=== PATIENT | female | born 1985 | race Caucasian/White ===

== ENCOUNTER → 2017-08-04 | Outpatient (CLI) | payer OTHER ==
[2017-08-04 16:51] LABS: BASO # 0.1 x10^3/uL (0.0-0.2); BASO % 1 % (0-3); EOS # 0.2 x10^3/uL (0.0-0.7); EOS % 2 % (0-3); HEMATOCRIT 40.2 % (36.0-47.0); HEMOGLOBIN 13.7 g/dL (12.0-15.5); LYMPH # 2.7 x10^3/uL (1.0-4.8); LYMPH % 24 % (24-48); MEAN CORPUSCULAR HEMOGLOBIN 33 pg (25-35); MEAN CORPUSCULAR HGB CONC 34 g/dL (31-37); MEAN CORPUSCULAR VOLUME 97 fL (79-100); MONO # 0.7 x10^3/uL (0.0-1.1); MONO % 7 % (0-9); NEUT # 7.4 x10^3uL (1.8-7.7); NEUT % 67 % (31-73); PLATELET COUNT 256 x10^3/uL (140-400); RED BLOOD COUNT 4.15 x10^6/uL (3.50-5.40); RED CELL DISTRIBUTION WIDTH 14.9 % (11.5-14.5); WHITE BLOOD COUNT 11.1 x10^3/uL (4.0-11.0)
[2017-08-04 16:55] LABS: ALBUMIN 3.5 g/dL (3.4-5.0); CALCIUM 8.7 mg/dL (8.5-10.1); CREATININE 0.8 mg/dL (0.6-1.0); GFR 82.1; POTASSIUM 3.7 mmol/L (3.5-5.1); TOTAL BILIRUBIN 0.2 mg/dL (0.2-1.0); TOTAL PROTEIN 6.9 g/dL (6.4-8.2)
[2017-08-05 11:02] LABS: FREE T4 0.92 ng/dL (0.76-1.46); THYROID STIM HORMONE (TSH) 1.004 uIU/mL (0.358-3.740)
== END | disposition home or self-care (01) ==
LOC: PMG 15:09
PROVIDERS: ATTEND Nurse Practitioner Family
DX: I10 Essential (primary) hypertension (principal); N92.6 Irregular menstruation, unspecified; R63.1 Polydipsia; R53.83 Other fatigue
CPT/HCPCS: 36415; 80053; 84439; 84443; 85025

== ENCOUNTER → 2019-03-13 | Outpatient (CLI) | payer OTHER ==
--- NOTE | 2019-03-13 17:31 | RAD ---
LUMBAR SPINE MIN 4V History: Lumbar back pain Comparison: None FINDINGS: 5 views of the lumbar spine are submitted. There is very mild superior lumbar dextroscoliosis. Lumbar vertebral body stature and AP alignment are maintained. Intervertebral disc spaces are adequate. No acute osseous abnormality is identified by radiographs. Impression: 1. There is mild lumbar dextroscoliosis. No acute osseous abnormality is identified by radiographs. Electronically signed by: Romero Mckinley MD (03/13/2019 5:28 PM) [id number]
== END | disposition home or self-care (01) ==
LOC: PMG 15:53
PROVIDERS: ATTEND Physician Assistant
DX: M41.86 Other forms of scoliosis, lumbar region (principal)
CPT/HCPCS: 72110

== ENCOUNTER → 2019-11-13 | Outpatient (CLI) | payer OTHER ==
[2019-11-13 15:30] LABS: BASO # 0.1 x10^3/uL (0.0-0.2); BASO % 1 % (0-3); EOS # 0.2 x10^3/uL (0.0-0.7); EOS % 2 % (0-3); HEMATOCRIT 40.2 % (36.0-47.0); HEMOGLOBIN 13.6 g/dL (12.0-15.5); LYMPH # 2.3 x10^3/uL (1.0-4.8); LYMPH % 28 % (24-48); MEAN CORPUSCULAR HEMOGLOBIN 34 pg (25-35); MEAN CORPUSCULAR HGB CONC 34 g/dL (31-37); MEAN CORPUSCULAR VOLUME 101 fL (79-100); MONO # 0.5 x10^3/uL (0.0-1.1); MONO % 6 % (0-9); NEUT # 5.4 x10^3uL (1.8-7.7); NEUT % 64 % (31-73); PLATELET COUNT 336 x10^3/uL (140-400); RED BLOOD COUNT 3.99 x10^6/uL (3.50-5.40); RED CELL DISTRIBUTION WIDTH 12.7 % (11.5-14.5); WHITE BLOOD COUNT 8.4 x10^3/uL (4.0-11.0)
[2019-11-13 15:56] LABS: ALBUMIN 3.5 g/dL (3.4-5.0); ALBUMIN/GLOBULIN RATIO 0.8 (1.0-1.7); CALCIUM 9.3 mg/dL (8.5-10.1); CREATININE 1.1 mg/dL (0.6-1.0); GFR 56.2; POTASSIUM 3.3 mmol/L (3.5-5.1); TOTAL BILIRUBIN 0.4 mg/dL (0.2-1.0); TOTAL PROTEIN 7.7 g/dL (6.4-8.2)
[2019-11-14 14:05] LABS: FREE T4 1.11 ng/dL (0.76-1.46); THYROID STIM HORMONE (TSH) 1.907 uIU/mL (0.358-3.740)
== END | disposition home or self-care (01) ==
LOC: LAB 14:19
PROVIDERS: ATTEND Physician Assistant Medical
DX: Z00.00 Encounter for general adult medical examination without abnormal findings (principal); I10 Essential (primary) hypertension
CPT/HCPCS: 36415; 80053; 84439; 84443; 85025; 88175

== ENCOUNTER 2020-11-02 11:15 | Emergency (ER) | payer OTHER ==
[~2020-11-02] VITALS: Ht 170.2 cm; Wt 80.3 kg
[2020-11-02 11:15] VITALS: BP 126/60
[2020-11-02] MEDS ORDERED: PENI500T PO (12:04)
--- NOTE | 2020-11-02 12:04 | PHYS DOC ---
General Adult EDM: Chief Complaint: SORE THROAT HPI: HPI: 35-year-old female presents with severe sore throat. Is been getting worse the last couple of days. She has felt feverish but not measured a fever. She has not had strep since she was a kid. She states that it feels like she is swallowing glass. She is also very tired. She has no other complaints this time. Review of Systems: Review of Systems: Constitutional: Denies fever or chills Eyes: Denies change in visual acuity HENT: sore throat Respiratory: Denies cough or shortness of breath Cardiovascular: Denies chest pain or edema GI: Denies abdominal pain, nausea, vomiting, bloody stools or diarrhea : Denies dysuria Musculoskeletal: Denies back pain or joint pain Integument: Denies rash Neurologic: Denies headache, focal weakness or sensory changes Endocrine: Denies polyuria or polydipsia Lymphatic: Denies swollen glands Psychiatric: Denies depression or anxiety Physical Exam: PE: Constitutional: Well developed, well nourished, no acute distress, non-toxic appearance. [] HENT: Normocephalic, atraumatic, bilateral external ears normal, oropharynx erythematous, swollen with bilateral tonsillar exudates, nose normal. [] Eyes: PERRLA, EOMI, conjunctiva normal, no discharge. [] Neck: Normal range of motion, no tenderness, supple, no stridor. [] Cardiovascular:Heart rate regular rhythm, no murmur [] Lungs & Thorax: Bilateral breath sounds clear to auscultation [] Abdomen: Bowel sounds normal, soft, no tenderness, no masses, no pulsatile masses. [] Skin: Warm, dry, no erythema, no rash. [] Back: No tenderness, no CVA tenderness. [] Extremities: No tenderness, no cyanosis, no clubbing, ROM intact, no edema. [] Neurologic: Alert and oriented X 3, normal motor function, normal sensory function, no focal deficits noted. [] Psychologic: Affect normal, judgement normal, mood normal. [] EKG: EKG: [] Radiology/Procedures: Radiology/Procedures: [] Heart Score: C/O Chest Pain: N/A Risk Factors: Risk Factors: DM, Current or recent (<one month) smoker, HTN, HLP, family history of CAD, obesity. Risk Scores: Score 0 - 3: 2.5% MACE over next 6 weeks - Discharge Home Score 4 - 6: 20.3% MACE over next 6 weeks - Admit for Clinical Observation Score 7 - 10: 72.7% MACE over next 6 weeks - Early Invasive Strategies Course & Med Decision Making: Course & Med Decision Making Pertinent Labs and Imaging studies reviewed. (See chart for details) The patient's rapid strep is positive. She also clinically looks like strep pharyngitis. She has elected for pill treatment versus an injection. I will treat her with penicillin for 10 days. She is stable for discharge at this time. [] Dragon Disclaimer: Dragon Disclaimer: This electronic medical record was generated, in whole or in part, using a voice recognition dictation system. Departure Departure: Impression: Primary Impression: Strep pharyngitis Disposition: HOME / SELF CARE / HOMELESS Condition: STABLE Referrals: GENESIS GRESHAM (PCP) Patient Instructions: Strep Throat, [id number] Scripts Penicillin V Potassium (PENICILLIN V POTASSIUM) 500 Mg Tablet 1 TAB PO BID for strep throat for 10 Days, #20 TAB Prov: EDMUND PERKINS DO 11/02/20 EDMUND PERKINS DO Nov 02, 2020 12:04
== END 2020-11-02 12:10 | disposition home or self-care (01) ==
LOC: ER 11:15
DX: J02.0 Streptococcal pharyngitis (principal); B95.0 Streptococcus, group A, as the cause of diseases classified elsewhere
CPT/HCPCS: 87880; 99283

== ENCOUNTER 2021-02-07 17:57 | Emergency (ER) | payer OTHER ==
[~2021-02-07] VITALS: Ht 170.2 cm; Wt 81.8 kg
[~2021-02-07 17:57] MED LIST: PENI500T PO
--- NOTE | 2021-02-07 18:45 | PHYS DOC ---
Past History Past Surgical History: No Surgical History Alcohol Use: Occasionally Adult General Chief Complaint Chief Complaint: SHORTNESS OF BREATH HPI HPI Patient is a 35-year-old female who presents with a chief complaint of cough, pleuritic chest pain with radiation to the back and sore throat. States been going on about 2 days. States she think she has had fevers at home she has been warm and having chills and sweats. States she has had her Covid vaccine several months ago. Denies any recent traumas, travels, other illnesses, abdominal pain, nausea, vomiting, diarrhea, dysuria, hematuria or blood in the stool. Review of Systems Review of Systems Review of systems otherwise unremarkable except noted in HPI Physical Exam Physical Exam Constitutional: Well developed, well nourished, no acute distress, non-toxic appearance. [] HENT: Normocephalic, atraumatic, bilateral external ears normal, oropharynx moist, no oral exudates, nose normal. [] Eyes: conjunctiva normal, no discharge. [] Neck: Normal range of motion, no tenderness, supple, no stridor. [] Cardiovascular:Heart rate regular rhythm, no murmur [] Lungs & Thorax: Bilateral breath sounds clear to auscultation [] Abdomen: soft, no tenderness, no masses, no pulsatile masses. [] Skin: Warm, dry, no erythema, no rash. [] Back: No tenderness, no CVA tenderness. [] Extremities: No tenderness, no cyanosis, no clubbing, ROM intact, no edema. [] Neurologic: Alert and oriented X 3, normal motor function, normal sensory function, no focal deficits noted. [] Psychologic: Affect normal, judgement normal, mood normal. [] EKG EKG [] Radiology/Procedures Radiology/Procedures []XAM: CT OF THE CHEST WITHOUT CONTRAST. HISTORY: Opacities on chest radiography. TECHNIQUE: Computed tomography of the chest was performed without intravenous contrast. One or more of the following individualized dose reduction techniques were utilized for this examination: 1. Automated exposure control. 2. Adjustment of the mA and/or kV according to patient size. 3. Use of iterative reconstruction technique. COMPARISON: Today's chest radiograph. FINDINGS: Images of the upper abdomen reveal no acute abnormality. Bone windows reveal no suspicious lesions. There are no pathologically enlarged mediastinal or axillary lymph nodes. There is no pleural or pericardial effusion. The heart is not enlarged. Airspace infiltrates involve the left lower lobe and lingula. Lesser opacities within the right middle lobe and right lower lobe may reflect atelectasis. IMPRESSION: 1. Consolidation in the left base is consistent with pneumonia. Electronically signed by: Frederick Craig MD (02/07/2021 9:45 PM) [facility] Heart Score C/O Chest Pain: No Risk Factors: Risk Factors: DM, Current or recent (<one month) smoker, HTN, HLP, family history of CAD, obesity. Risk Scores: Risk Factors: DM, Current or recent (<one month) smoker, HTN, HLP, family history of CAD, obesity. Course & Med Decision Making Course & Med Decision Making Patient is a 35-year-old female who presents with a chief complaint of pleuritic chest pain and shortness of breath Vital signs notable for sinus tachycardia. Physical exam noted above. Patient placed on the monitor with IV access established. Given cough medicine. Imaging of the chest with consolidation in the left base consistent with pneumonia. Discussed all findings with patient and recommended admission to the hospital for continued evaluation and treatment of her pneumonia given her increased respiratory rate. Patient was appreciative, but stated she was at home alone and would just prefer to go on home, and take some medicine/antibiotics as we discussed and call her primary care physician Dr. Genesis Diaz first thing in the morning. Advised against this, but stated if she want to go home gave her symptom control manage ment and advised also stop and get a O2 sat monitor. Gave strict return precautions to the ED. Patient grateful, verbalized understanding and agreed with plan of discharge. [] Dragon Disclaimer Dragon Disclaimer This electronic medical record was generated, in whole or in part, using a voice recognition dictation system. Departure Departure: Impression: Primary Impression: Chest pain Additional Impression: Shortness of breath Disposition: 01 HOME / SELF CARE / HOMELESS Condition: GOOD Referrals: GENESIS GRESHAM (PCP) Patient Instructions: Chest Pain (Nonspecific), Pneumonia, Adult Additional Instructions: Thank you for coming in to the emergency department and allowing us to take care of you. Please read the attached information carefully to go over things we discussed. As we discussed you have a pneumonia, and you are offered admission to the hospital given your respiratory rate but you stated you felt safe to discharge home. We discussed strict reasons to come back to the emergency department. We also discussed needing to stop and get some [id number] medicines as well as an oxygen monitor for your finger. Please call your primary care physician first thing Monday morning to update on ED visit and set up a follow-up appointment as soon as possible. Please come back to the ED with new or concerning symptoms as discussed. Scripts Levofloxacin (LEVOFLOXACIN) 750 Mg Tablet 1 TAB PO DAILY for PNA for 7 Days, #7 TAB Prov: LAURY MARTINEZ MD 02/07/21 Problem Qualifiers LAURY MARTINEZ MD Feb 07, 2021 18:45
[2021-02-07] MEDS ORDERED: guaiFENesin/CODEINE 100mg/10mg 5 ML LIQUID PO PRN (19:15)
[2021-02-07 20:12] LABS: INFLUENZA A PATIENT NEGATIVE (NEGATIVE); INFLUENZA B PATIENT NEGATIVE (NEGATIVE)
--- NOTE | 2021-02-07 21:48 | RAD ---
EXAM: CT OF THE CHEST WITHOUT CONTRAST. HISTORY: Opacities on chest radiography. TECHNIQUE: Computed tomography of the chest was performed without intravenous contrast. One or more o f the following individualized dose reduction techniques were utilized for this examination: 1. Automated exposure control. 2. Adjustment of the mA and/or kV according to patient size. 3. Use of iterative reconstruction technique. COMPARISON: Today's chest radiograph. FINDINGS: Images of the upper abdomen reveal no acute abnormality. Bone windows reveal no suspicious lesions. There are no pathologically enlarged mediastinal or axillary lymph nodes. There is no pleural or chad cardial effusion. The heart is not enlarged. Airspace infiltrates involve the left lower lobe and lingula. Lesser opacities within the right middl e lobe and right lower lobe may reflect atelectasis. IMPRESSION: 1. Consolidation in the left base is consistent with pneumonia. Electronically signed by: Frederick Craig MD (02/07/2021 9:45 PM) [facility]
--- NOTE | 2021-02-07 21:48 | RAD ---
EXAM: CHEST ONE VIEW. HISTORY: Cough, fever. COMPARISON: None. FINDINGS: A frontal view of the chest is obtained. Airspace opacity in the left base is consistent with pneumonia. Additional opacities in the right bas e may reflect atelectasis. The inspiration is small. There is no pneumothorax or clear pleural effusi on. The heart is not enlarged. IMPRESSION: 1. Left basilar pneumonia. Right basilar atelectasis or lesser infiltrate. Electronically signed by: Frederick Craig MD (02/07/2021 9:46 PM) [facility]
[2021-02-07] MEDS ORDERED: levoFLOXacin 250 MG TABLET ONE (21:55)
[2021-02-07 22:00] VITALS: BP 104/68
[2021-02-07] MEDS ORDERED: DEXAMETHASONE 4 MG TABLET PO ONE (22:00)
[2021-02-07] MEDS ORDERED: IV RINGERS SOLUTION,LACTATED 1,000 ML IV ONE (22:00)
[2021-02-07] MEDS ORDERED: LEVO750T5 PO (22:02)
[2021-02-07] MEDS ORDERED: guaiFENesin/CODEINE 100mg/10mg 5 ML LIQUID PO ONE (22:30)
[2021-02-07] MEDS ORDERED: levoFLOXacin 250 MG TABLET PO ONE (22:30)
[2021-02-07] MEDS ORDERED: levoFLOXacin 500 MG TABLET PO ONE (22:30)
== END 2021-02-07 22:30 | disposition home or self-care (01) ==
LOC: ER 17:57
DX: R07.89 Other chest pain (principal); Z20.822 Contact with and (suspected) exposure to COVID-19
CPT/HCPCS: 71045; 71250; 87804; 99285; C9803; J8540; U0003

== ENCOUNTER → 2021-06-04 | Outpatient (CLI) | payer OTHER ==
[~2021-06-04] MED LIST changes: +LEVO750T5 PO
--- NOTE | 2021-06-04 13:26 | RAD ---
EXAM: XR LUMBAR SPINE 4+V, XR HIP_RT 2-3VIEWS 06/04/2021 11:42 AM CLINICAL INDICATION: Right hip pain, lower back pain COMPARISON: Lumbar spine radiograph 02/26/[address] abdomen pelvis 03/09/2020 TECHNIQUE: AP and frog-leg lateral view the right hip. AP, right and left oblique, lateral, and cone d-down lateral views of the lumbar spine. FINDINGS: Right hip: No acute fracture or malalignment. The right hip joint space is maintained. Tiny femoral h ead osteophytes. The pubic symphysis and sacroiliac joints are normal. Lumbar spine: There are 5 nonrib-bearing lumbar vertebral bodies. No acute fracture. Alignment is nor mal. Mild S-shaped curvature has decreased. Disc spaces are maintained. No significant facet arthrosi s. IMPRESSION: 1. No acute abnormality or significant degenerative joint disease of the right hip. 2. No acute abnormality or significant degenerative disc disease of the lumbar spine. Decreased minim al S-shaped curvature. Electronically signed by: Zulma Kathleen MD (06/04/2021 1:23 PM) [facility]
--- NOTE | 2021-06-04 13:28 | RAD ---
EXAM: XR CHEST 2V 06/04/2021 11:42 AM CLINICAL INDICATION: Chest wall pain COMPARISON: Chest radiograph 02/07/2021 TECHNIQUE: PA and lateral views of the chest FINDINGS: The heart and mediastinum are normal. Lung expansion has improved. There is improved aerat ion of the lung bases are mild residual linear opacities in the left lung base, likely atelectasis. T he lungs are otherwise clear. No pleural effusion or pneumothorax. No acute osseous abnormality. IMPRESSION: Improved aeration of the lung bases mild residual linear opacities in the left lower lob e, likely atelectasis Electronically signed by: Zulma Kathleen MD (06/04/2021 1:25 PM) [facility]
== END ==
LOC: RAD 11:37
PROVIDERS: ATTEND Physician Assistant Medical
DX: M25.751 Osteophyte, right hip (principal); M43.8X6 Other specified deforming dorsopathies, lumbar region; R07.89 Other chest pain
CPT/HCPCS: 71046; 72110; 73502